=== PATIENT | male | born 1970 | race Caucasian/White ===

== ENCOUNTER 2016-07-07 15:41 | Emergency (ER) | payer OTHER, MEDICAID ==
[~2016-07-07] VITALS: Ht 177.8 cm; Wt 74.8 kg
[2016-07-07 18:26] VITALS: BP 131/84
[2016-07-07] MEDS ORDERED: IBUPROFEN 600 MG TAB PO ONE (18:45)
[2016-07-07] MEDS ORDERED: CYCLOBENZAPRINE HCL 10 MG TAB PO ONE (18:45)
== END 2016-07-07 19:37 | disposition home or self-care (01) ==
LOC: ER 15:42
DX: S13.9XXA Sprain of joints and ligaments of unspecified parts of neck, initial encounter (principal); M54.5 Low back pain; M54.2 Cervicalgia; G89.4 Chronic pain syndrome; M79.1 Myalgia; R20.0 Anesthesia of skin; V00-Y99 External causes of morbidity; Y93.89 Activity, other specified; Y99.8 Other external cause status; Y92.89 Other specified places as the place of occurrence of the external cause
CPT/HCPCS: 72040

== ENCOUNTER 2016-07-19 08:12 | Emergency (ER) | payer OTHER, MEDICAID ==
[~2016-07-19] VITALS: Ht 177.8 cm; Wt 79.4 kg
[2016-07-19 08:19] VITALS: BP 154/99
== END 2016-07-19 08:48 | disposition home or self-care (01) ==
LOC: ER 08:15
DX: G89.4 Chronic pain syndrome (principal); F12.10 Cannabis abuse, uncomplicated; F17.210 Nicotine dependence, cigarettes, uncomplicated